=== PATIENT | female | born 1990 | race Caucasian/White ===

== ENCOUNTER → 2020-02-04 | Outpatient (CLI) | payer OTHER ==
--- NOTE | 2020-02-04 10:05 | RAD ---
Examination: Ultrasound abdomen limited HISTORY: History of epigastric pain COMPARISON: None available. FINDINGS: The liver length measures 19 cm in length. The common bile duct measures 3.2 mm in diameter. The gallbladder wall thickness measures 1.5 mm. Echogenicities identified within the gallbladder likely cholelithiasis. The right kidney measures 12.1 x 4.6 x 3.4 cm. The pancreas is poorly visualized due to bowel gas. IMPRESSION: 1. Cholelithiasis. Electronically signed by: Giovani Lucio MD (02/04/2020 10:02 AM) [id number]
== END | disposition home or self-care (01) ==
LOC: US 08:57
PROVIDERS: ATTEND Physician Assistant Medical
DX: K80.20 Calculus of gallbladder without cholecystitis without obstruction (principal)
CPT/HCPCS: 76705